=== PATIENT | female | born 1995 | race Caucasian/White ===

== ENCOUNTER 2018-03-25 23:45 | Emergency (ER) | payer OTHER ==
[~2018-03-25] VITALS: Ht 165.1 cm; Wt 113.4 kg
[2018-03-26] MEDS ORDERED: VENTOLIN HFA 1818 GM INH
[2018-03-26] MEDS ORDERED: PREDNISONE 20 M20 M1 PO
[2018-03-26 00:19] VITALS: BP 93/72
== END 2018-03-26 00:28 | disposition home or self-care (01) ==
LOC: M.ERS 23:45
DX: J45.901 Unspecified asthma with (acute) exacerbation (principal); F31.9 Bipolar disorder, unspecified; F17.210 Nicotine dependence, cigarettes, uncomplicated

== ENCOUNTER 2018-05-12 08:44 | Emergency (ER) | payer OTHER ==
[~2018-05-12] VITALS: Ht 165.1 cm; Wt 104.3 kg
[~2018-05-12 08:44] MED LIST: PREDNISONE 20 M20 M1 PO; VENTOLIN HFA 1818 GM INH
[2018-05-12 09:19] LABS: ABSOLUTE BASOPHILS 0.1 thou/uL (0.0-0.2); ABSOLUTE EOSINOPHILS 0.2 thou/uL (0.0-0.7); ABSOLUTE LYMPHOCYTES 2.1 thou/uL (0.8-5.3); ABSOLUTE MONOCYTES 0.5 thou/uL (0.0-1.2); ABSOLUTE NEUTROPHILS 4.9 thou/uL (1.6-8.1); BASOPHILS 0.6 %; HEMOGLOBIN 13.2 gm/dL (12.0-15.0); LYMPHOCYTES 27.2 %; MCV 85.5 fL (80.0-100.0); MONOCYTES 6.6 %; NUCLEATED RBCS 0 /100WBC; PLATELET COUNT* 258 thou/uL (150-400); POLYS 62.6 %; RBC 4.56 mil/uL (4.20-5.00); WBC 7.9 thou/uL (4.0-11.0)
[2018-05-12 09:30] LABS: CALCIUM 8.2 mg/dL (8.5-10.1); CREATININE 0.6 mg/dL (0.6-1.3); POTASSIUM 3.8 mmol/L (3.5-5.1)
[2018-05-12 09:34] LABS: ALBUMIN 3.3 g/dL (3.4-5.0); TOTAL BILIRUBIN 0.1 mg/dL (<0.1-1.0); TOTAL PROTEIN 6.5 g/dL (6.4-8.2)
[2018-05-12] MEDS ORDERED: KEFLEX500 M1 PO (09:51)
[2018-05-12 10:03] VITALS: BP 122/79
== END 2018-05-12 10:03 | disposition home or self-care (01) ==
LOC: M.ERS 08:44
PROVIDERS: Emergency Medicine Emergency Medical Services
DX: J02.9 Acute pharyngitis, unspecified (principal); J45.909 Unspecified asthma, uncomplicated; F31.9 Bipolar disorder, unspecified; F41.9 Anxiety disorder, unspecified; F17.210 Nicotine dependence, cigarettes, uncomplicated